=== PATIENT | female | born 1955 | race Caucasian/White ===

== ENCOUNTER 2018-03-19 07:59 | Inpatient (IN) | payer BC ==
[~2018-03-19] VITALS: Ht 157.5 cm; Wt 89.2 kg
[2018-03-19] MEDS ORDERED: SODIUM CHLORIDE 0.9% 500 ML IVB ONE (08:38)
[2018-03-19 08:43] LABS: Basophils # (auto) 0.1 uL; Basophils % (auto) 0.4 % (0.0-2.0); Eosinophils # (auto) 0 uL; Hematocrit 40.3 % (36.0-46.0); Hemoglobin 13.2 g/dL (12.2-16.2); Lymphocytes % (auto) 5.2 % (10.0-50.0); Mean Corpuscular Hemoglobin 28.8 pg (28.0-32.0); Mean Corpuscular Hgb Conc. 32.8 g/dL (32.0-36.0); Mean Corpuscular Volume 87.8 fL (80.0-100.0); Monocytes # (auto) 1.6 uL; Monocytes % (auto) 8.3 % (0.0-12.0); Neutrophils # (auto) 16.3 uL; Neutrophils % (auto) 86.1 % (37.0-80.0); Platelet Count (auto) 279 10^3/uL (140-450); Red Blood Cells 4.59 10^6/uL (4.0-5.20); Red Cell Distribution Width 14.2 % (11.8-14.3); White Blood Cell 18.9 10^3/uL (4.4-10.8)
[2018-03-19] MEDS ORDERED: ONDANSETRON HCL 4 MG/2 ML VIAL IV ONE ×2 (08:45→13:30)
[2018-03-19] MEDS ORDERED: MORPHINE SULF INJ 2 MG/ML SYRINGE 1ML IV ONE (08:45)
[2018-03-19 09:02] LABS: Albumin 3.6 g/dL (3.4-5.0); BUN/Creatinine Ratio 14.3; Bilirubin, Total 0.8 mg/dL (0.2-1.0); Calcium 8.4 mg/dL (8.5-10.1); Potassium 3.7 mmol/L (3.5-5.1); Total Protein 7.8 g/dL (6.4-8.2)
[2018-03-19 09:05] LABS: Magnesium 2.3 mg/dL (1.6-2.6)
[2018-03-19] MEDS ORDERED: cefTRIAXone 1GM/10ml IVPUSH 10 ML IV ONE (09:30)
[2018-03-19] MEDS ORDERED: metroNIDAZOLE 500MG/100ML 100 ML IV ONE (09:45)
[2018-03-19] MEDS ORDERED: PIPERACILLIN-TAZOB 3.375GM 100 ML IV ONE (09:45)
[2018-03-19] MEDS ORDERED: NITROGLYCERIN 0.4 MG SL TAB SL PRN (10:00)
[2018-03-19] MEDS ORDERED: LORazepam 2MG/ML-1ML VIAL IV PRN (10:00)
[2018-03-19] MEDS ORDERED: PROMETHAZINE HCL 25 MG/ML 1ML IV PRN (10:00)
[2018-03-19] MEDS ORDERED: PANTOPRAZOLE 40 MG/10 ML VIAL IV ONE (10:00)
[2018-03-19] MEDS ORDERED: MORPHINE SULF INJ 2 MG/ML SYRINGE 1ML IV PRN ×2 (10:00→13:30)
[2018-03-19 10:24] LABS: INR 0.99 (0.9-1.15); Partial Thromboplastin Time 28.5 sec (23.78-33.04); Prothrombin Time 10.6 sec (9.27-12.13)
[2018-03-19 10:25] LABS: Urine Bacteria FEW /hpf (None Seen); Urine Blood Negative /uL (Negative); Urine Mucus FEW (None Seen); Urine Specific Gravity 1.004 (1.001-1.035); Urine WBC 1 /hpf (0 - 5)
[2018-03-19] MEDS: PANTOPRAZOLE 40 MG/10 ML VIAL IV SCH (10:38)
[2018-03-19] MEDS ORDERED: SODIUM CHLORIDE 0.9% 1,000 ML IV ONE (10:45)
[2018-03-19] MEDS ORDERED: ACETAMINOPHEN 325 MG TAB PO ONE (11:30)
[2018-03-19] MEDS ORDERED: ACETAMINOPHEN 650 MG RECT SUPP PR ONE (11:45)
[2018-03-19] MEDS: SODIUM CHLORIDE 0.9% 1,000 ML IV SCH ×2 (12:40→17:26)
[2018-03-19] MEDS ORDERED: SUCCINYLCHOLINE CHLORIDE 20 MG/ML 10ML VIAL IV ONE (13:00)
[2018-03-19] MEDS ORDERED: LIDOCAINE 1% (LOCAL ANESTH.) PF 5ml SDV ONE (13:00)
[2018-03-19] MEDS ORDERED: MIDAZOLAM HCL 1MG/1ML-2 ML VIAL ONE (13:02)
[2018-03-19] MEDS ORDERED: ETOMIDATE (2MG/ML) 20ML VIAL IV ONE (13:02)
[2018-03-19] MEDS ORDERED: ROCURONIUM 10MG/ML 10ML VIAL IV ONE (13:11)
[2018-03-19] MEDS ORDERED: fentaNYL CITRATE 100 MCG/2 ML VL ONE (13:17)
[2018-03-19] MEDS ORDERED: METOCLOPRAMIDE HCL 5MG/ml INJ 2ml VIAL ONE (13:17)
[2018-03-19] MEDS ORDERED: ACCU-CHEK COMFORT CURVE STRIP VI ONE (13:30)
[2018-03-19] MEDS ORDERED: NALOXONE HCL 0.4 MG/ML VIAL IV PRN (13:30)
[2018-03-19] MEDS ORDERED: hydrALAZINE HCL 20 MG/ML VL IV PRN (13:30)
[2018-03-19] MEDS ORDERED: KETOROLAC TROMETH 30 MG/ML 1ML VIAL ONE (14:01)
[2018-03-19] MEDS ORDERED: GLYCOPYRROLATE 0.2 MG/ML 1ML VIAL ONE (14:12)
[2018-03-19] MEDS ORDERED: NEOSTIGMINE 1 MG/ML INJ (10mg/10ML VIAL) ONE (14:12)
[2018-03-19] MEDS: metroNIDAZOLE 500MG/100ML 100 ML IV SCH ×2 (16:45→21:34)
[2018-03-19 17:00] VITALS: BP 114/82
[2018-03-19] MEDS ORDERED: PAR20T PO (17:00)
[2018-03-19] MEDS ORDERED: METF-370 PO (17:00)
[2018-03-19] MEDS ORDERED: MULTCAP45 PO (17:00)
[2018-03-19] MEDS: MORPHINE SULF INJ 2 MG/ML SYRINGE 1ML IV PRN ×2 (19:42→23:50)
[2018-03-19 22:00] VITALS: BP 93/60
[2018-03-20] MEDS: metroNIDAZOLE 500MG/100ML 100 ML IV SCH ×4 (04:28→21:51)
[2018-03-20] MEDS: SODIUM CHLORIDE 0.9% 1,000 ML IV SCH ×3 (04:29→16:37)
[2018-03-20] MEDS: MORPHINE SULF INJ 2 MG/ML SYRINGE 1ML IV PRN ×5 (04:29→22:36)
[2018-03-20 05:00] VITALS: BP 118/70
[2018-03-20 05:41] LABS: Basophils # (auto) 0 uL; Basophils % (auto) 0.2 % (0.0-2.0); Eosinophils # (auto) 0.1 uL; Eosinophils % (auto) 0.4 % (0.0-7.0); Hematocrit 36.6 % (36.0-46.0); Hemoglobin 11.9 g/dL (12.2-16.2); Lymphocytes # (auto) 1.1 uL; Lymphocytes % (auto) 7.8 % (10.0-50.0); Mean Corpuscular Hemoglobin 29.3 pg (28.0-32.0); Mean Corpuscular Hgb Conc. 32.4 g/dL (32.0-36.0); Mean Corpuscular Volume 90.2 fL (80.0-100.0); Monocytes % (auto) 6.9 % (0.0-12.0); Neutrophils # (auto) 12.2 uL; Neutrophils % (auto) 84.7 % (37.0-80.0); Platelet Count (auto) 226 10^3/uL (140-450); Red Blood Cells 4.06 10^6/uL (4.0-5.20); White Blood Cell 14.4 10^3/uL (4.4-10.8)
[2018-03-20 05:49] LABS: Albumin 2.5 g/dL (3.4-5.0); BUN/Creatinine Ratio 18.4; Calcium 7.3 mg/dL (8.5-10.1)
[2018-03-20 05:52] LABS: Bilirubin, Total 0.5 mg/dL (0.2-1.0); Total Protein 6.3 g/dL (6.4-8.2)
[2018-03-20 08:00] VITALS: BP 121/65
[2018-03-20] MEDS: cefTRIAXone 1GM/10ml IVPUSH 10 ML IV SCH (08:57)
[2018-03-20 09:00] VITALS: BP 121/65
[2018-03-20] MEDS: PANTOPRAZOLE 40 MG/10 ML VIAL IV SCH (10:50)
[2018-03-20 13:00] VITALS: BP 130/62
[2018-03-20] MEDS: ACETAMINOPHEN 325 MG TAB PO PRN ×3 (13:51→21:51)
[2018-03-20 17:00] VITALS: BP 115/57
[2018-03-20 22:00] VITALS: BP 113/57
[2018-03-21] MEDS: SODIUM CHLORIDE 0.9% 1,000 ML IV SCH ×4 (00:26→23:35)
[2018-03-21] MEDS: metroNIDAZOLE 500MG/100ML 100 ML IV SCH ×4 (03:50→22:01)
[2018-03-21] MEDS: ACETAMINOPHEN 325 MG TAB PO PRN ×4 (03:54→20:28)
[2018-03-21] MEDS: MORPHINE SULF INJ 2 MG/ML SYRINGE 1ML IV PRN ×5 (04:36→22:01)
[2018-03-21 04:49] VITALS: BP 144/74
[2018-03-21 06:52] LABS: Basophils # (auto) 0 uL; Basophils % (auto) 0.1 % (0.0-2.0); Eosinophils # (auto) 0.2 uL; Eosinophils % (auto) 1.7 % (0.0-7.0); Hematocrit 32.4 % (36.0-46.0); Lymphocytes # (auto) 0.9 uL; Lymphocytes % (auto) 7.1 % (10.0-50.0); Mean Corpuscular Hemoglobin 30.1 pg (28.0-32.0); Mean Corpuscular Hgb Conc. 33.8 g/dL (32.0-36.0); Monocytes # (auto) 1.2 uL; Monocytes % (auto) 9.5 % (0.0-12.0); Neutrophils # (auto) 10.1 uL; Neutrophils % (auto) 81.6 % (37.0-80.0); Nucleated Red Blood Cells % 0.1 %; Platelet Count (auto) 224 10^3/uL (140-450); Red Blood Cells 3.64 10^6/uL (4.0-5.20); Red Cell Distribution Width 14.4 % (11.8-14.3); White Blood Cell 12.3 10^3/uL (4.4-10.8)
[2018-03-21 07:00] LABS: Calcium 7.9 mg/dL (8.5-10.1); Potassium 3.5 mmol/L (3.5-5.1)
[2018-03-21 07:05] LABS: BUN/Creatinine Ratio 20.4
[2018-03-21 08:00] VITALS: BP 135/70
[2018-03-21] MEDS ORDERED: DEXTROSE (50%) 50ML SYRG IV PRN (08:30)
[2018-03-21 09:00] VITALS: BP 135/70
[2018-03-21] MEDS: cefTRIAXone 1GM/10ml IVPUSH 10 ML IV SCH (09:10)
[2018-03-21] MEDS: PANTOPRAZOLE 40 MG/10 ML VIAL IV SCH (09:59)
[2018-03-21] MEDS: ACCU-CHEK COMFORT CURVE STRIP VI SCH ×3 (11:33→22:02)
[2018-03-21] MEDS: InsuLIN REG 1unit/0.01ml Soln (100units/ml) SC SCH ×3 (11:34→22:00)
[2018-03-21 13:00] VITALS: BP 125/70
[2018-03-21 17:00] VITALS: BP 129/71
[2018-03-21 22:00] VITALS: BP 149/82
[2018-03-22] MEDS: ACETAMINOPHEN 325 MG TAB PO PRN ×2 (02:11→19:59)
[2018-03-22] MEDS: MORPHINE SULF INJ 2 MG/ML SYRINGE 1ML IV PRN ×5 (02:12→19:58)
[2018-03-22] MEDS: metroNIDAZOLE 500MG/100ML 100 ML IV SCH ×4 (03:31→21:37)
[2018-03-22 05:00] VITALS: BP 148/82
[2018-03-22 05:41] LABS: Basophils # (auto) 0 uL; Basophils % (auto) 0.3 % (0.0-2.0); Eosinophils # (auto) 0.3 uL; Eosinophils % (auto) 2.5 % (0.0-7.0); Hematocrit 32.8 % (36.0-46.0); Hemoglobin 11.2 g/dL (12.2-16.2); Lymphocytes # (auto) 0.9 uL; Lymphocytes % (auto) 8.4 % (10.0-50.0); Mean Corpuscular Hemoglobin 30.2 pg (28.0-32.0); Mean Corpuscular Volume 88.8 fL (80.0-100.0); Monocytes # (auto) 0.9 uL; Monocytes % (auto) 8.9 % (0.0-12.0); Neutrophils # (auto) 8.5 uL; Neutrophils % (auto) 79.9 % (37.0-80.0); Platelet Count (auto) 265 10^3/uL (140-450); Red Blood Cells 3.69 10^6/uL (4.0-5.20); Red Cell Distribution Width 13.9 % (11.8-14.3); White Blood Cell 10.6 10^3/uL (4.4-10.8)
[2018-03-22 05:55] LABS: BUN/Creatinine Ratio 13.3; Calcium 7.7 mg/dL (8.5-10.1)
[2018-03-22 06:18] LABS: Potassium 2.9 mmol/L (3.5-5.1)
[2018-03-22] MEDS: InsuLIN REG 1unit/0.01ml Soln (100units/ml) SC SCH ×4 (06:30→21:46)
[2018-03-22] MEDS: SODIUM CHLORIDE 0.9% 1,000 ML IV SCH ×2 (06:30→16:54)
[2018-03-22] MEDS: ACCU-CHEK COMFORT CURVE STRIP VI SCH ×4 (06:30→21:37)
[2018-03-22 08:00] VITALS: BP 165/74
[2018-03-22 09:00] VITALS: BP 165/74
[2018-03-22] MEDS: POTASSIUM CHL 20 Meq TABLET PO SCH ×3 (09:14→21:37)
[2018-03-22] MEDS: POTASSIUM CHL 20MEQ/100ML 100 ML IV SCH ×2 (09:14→11:53)
[2018-03-22] MEDS: cefTRIAXone 1GM/10ml IVPUSH 10 ML IV SCH (09:15)
[2018-03-22] MEDS: PANTOPRAZOLE 40 MG/10 ML VIAL IV SCH (09:35)
[2018-03-22 13:00] VITALS: BP 144/77
[2018-03-22 17:00] VITALS: BP 157/73
[2018-03-22 22:00] VITALS: BP 145/65
[2018-03-23] MEDS: SODIUM CHLORIDE 0.9% 1,000 ML IV SCH ×2 (02:33→06:19)
[2018-03-23] MEDS: metroNIDAZOLE 500MG/100ML 100 ML IV SCH ×2 (04:12→09:36)
[2018-03-23] MEDS: ACETAMINOPHEN 325 MG TAB PO PRN (04:17)
[2018-03-23 05:00] VITALS: BP 152/75
[2018-03-23] MEDS: ACCU-CHEK COMFORT CURVE STRIP VI SCH ×2 (06:25→11:30)
[2018-03-23] MEDS: InsuLIN REG 1unit/0.01ml Soln (100units/ml) SC SCH ×2 (06:26→11:30)
[2018-03-23 07:33] LABS: Basophils # (auto) 0 uL; Basophils % (auto) 0.5 % (0.0-2.0); Eosinophils # (auto) 0.5 uL; Eosinophils % (auto) 5.2 % (0.0-7.0); Hematocrit 37.9 % (36.0-46.0); Hemoglobin 12.6 g/dL (12.2-16.2); Lymphocytes # (auto) 1.2 uL; Lymphocytes % (auto) 12.1 % (10.0-50.0); Mean Corpuscular Hemoglobin 29.2 pg (28.0-32.0); Mean Corpuscular Hgb Conc. 33.2 g/dL (32.0-36.0); Mean Corpuscular Volume 87.9 fL (80.0-100.0); Monocytes # (auto) 0.9 uL; Monocytes % (auto) 9.9 % (0.0-12.0); Neutrophils # (auto) 6.9 uL; Neutrophils % (auto) 72.3 % (37.0-80.0); Nucleated Red Blood Cells % 0.1 %; Platelet Count (auto) 338 10^3/uL (140-450); Red Cell Distribution Width 14.2 % (11.8-14.3); White Blood Cell 9.5 10^3/uL (4.4-10.8)
[2018-03-23 07:41] LABS: Calcium 8.6 mg/dL (8.5-10.1); Potassium 3.8 mmol/L (3.5-5.1)
[2018-03-23 07:45] VITALS: BP 152/75
[2018-03-23 08:16] VITALS: BP 159/63
[2018-03-23] MEDS: cefTRIAXone 1GM/10ml IVPUSH 10 ML IV SCH (09:35)
[2018-03-23] MEDS: PANTOPRAZOLE 40 MG/10 ML VIAL IV SCH (09:35)
[2018-03-23 10:41] VITALS: BP 159/63
[2018-03-23 11:39] VITALS: BP 144/62
== END 2018-03-23 12:05 | disposition home or self-care (01) | DRG 853 ==
LOC: ER 07:59 → EDUNIT# 07:59 → EDBD 07:59 → TELE 08:00 → TELE-WESTW 12:57
PROVIDERS: ADMIT Internal Medicine; ATTEND Internal Medicine
PROC: 0DBH4ZZ Excision of Cecum, Percutaneous Endoscopic Approach (ICD-10-PCS; 2018-03-19)
PROC: 0W9J4ZZ Drainage of Pelvic Cavity, Percutaneous Endoscopic Approach (ICD-10-PCS; 2018-03-19)
PROC: 0DTJ4ZZ Resection of Appendix, Percutaneous Endoscopic Approach (ICD-10-PCS; principal; 2018-03-19 12:45)
DX: A41.9 Sepsis, unspecified organism (principal); K35.2 Acute appendicitis with generalized peritonitis; E43 Unspecified severe protein-calorie malnutrition; N17.0 Acute kidney failure with tubular necrosis; E87.1 Hypo-osmolality and hyponatremia; L02.91 Cutaneous abscess, unspecified; K44.9 Diaphragmatic hernia without obstruction or gangrene; F32.9 Major depressive disorder, single episode, unspecified; I10 Essential (primary) hypertension; E11.65 Type 2 diabetes mellitus with hyperglycemia; K57.90 Diverticulosis of intestine, part unspecified, without perforation or abscess without bleeding; E66.01 Morbid (severe) obesity due to excess calories; K81.9 Cholecystitis, unspecified; K76.0 Fatty (change of) liver, not elsewhere classified; Z90.710 Acquired absence of both cervix and uterus; Z68.36 Body mass index [BMI] 36.0-36.9, adult; Z83.3 Family history of diabetes mellitus; Z90.49 Acquired absence of other specified parts of digestive tract
CPT/HCPCS: 36415; 71045; 74176; 80048; 80053; 81001; 82962; 83036; 83690; 83735; 85025; 85610; 85730; 86850; 86900; 86901; 87040; 93005; 96361; 96365; 96367; 96375; A6257; C9113; J0330; J0696; J1815; J1885; J2250; J2405; J2543; J3480; J3490

== ENCOUNTER 2024-04-14 12:43 | Emergency (ER) | payer BC, OTHER ==
[~2024-04-14] VITALS: Ht 160 cm; Wt 73.0 kg
[~2024-04-14 12:43] MED LIST: METF-370 PO; MULTCAP45 PO; PAR20T PO
[2024-04-14 13:21] VITALS: BP 157/78; PULSE 86; RESP 16; O2SAT 97
== END 2024-04-14 14:01 | disposition left against medical advice (07) ==
LOC: ER 12:43 → EDBD 12:43 → EDUNIT# 12:43 → ER 14:01
DX: R51.9 Headache, unspecified (principal); M54.2 Cervicalgia; Z53.21 Procedure and treatment not carried out due to patient leaving prior to being seen by health care provider